=== PATIENT | male | born 1980 | race Caucasian/White ===

== ENCOUNTER 2020-11-13 21:30 | Emergency (ER) | payer OTHER ==
[2020-11-14] MEDS ORDERED: NAPROXEN500 MG PO (00:14)
== END 2020-11-14 00:33 | disposition home or self-care (01) ==
LOC: FER 21:30
DX: M17.12 Unilateral primary osteoarthritis, left knee (principal); F17.210 Nicotine dependence, cigarettes, uncomplicated
CPT/HCPCS: 73590